=== PATIENT | male | born 1990 | race Caucasian/White ===

== ENCOUNTER 2019-11-05 20:41 | Emergency (ER) | payer OTHER ==
[~2019-11-05] VITALS: Ht 190.5 cm; Wt 90.7 kg
[~2019-11-05 20:41] MED LIST: BACTRIM DS TAB1 EACH PO; NORCO 5-325 TA1 EACH PO
[2019-11-05] MEDS ORDERED: TYLENOL WITH CO1 TA1 PO (21:10)
[2019-11-05] MEDS ORDERED: AMOXICILLIN 50500 MG PO (21:10)
[2019-11-05] MEDS ORDERED: LIDOCAINE VISC100 ML SWISH&SPIT (21:10)
[2019-11-05 21:13] VITALS: BP 124/68
== END 2019-11-05 21:13 | disposition home or self-care (01) ==
LOC: M.ERS 20:41
DX: K08.89 Other specified disorders of teeth and supporting structures (principal); Z98.890 Other specified postprocedural states